=== PATIENT | male | born 1950 | race Caucasian/White ===

== ENCOUNTER 2016-12-28 09:43 | Emergency (ER) | payer OTHER ==
[2016-12-28 09:49] VITALS: BP 144/86; BMI 27.3
--- NOTE | 2016-12-28 10:05 | DR.GENAD ---
HPI - PCP Primary Care Physician: ANGELA - Complaint/Symptoms Chief Complaint Doctors Comments: Agree with statement. Symptoms of two days duration. Chief Complaint:: PT. C/O BODY ACHES, FEVER, STOMACH PAIN, CHILLS, NAUSEA. - Source History Provided: Patient - Mode of Arrival Mode of Arrival: Ambulatory - Timing Onset of Chief Complaint: 12/26/16 PMH - PMH Past Medical History: Yes Past Medical History: Hypertension Past Surgical History: Yes Surgical History: Cholecystectomy - Family History History of Family Medical Conditions: Yes Family Medical History: Cancer, Coronary Artery Disease - Social History Does patient currently use any type of tobacco product: No Have you used tobacco products in the last 12 months: No Type of Tobacco Use: None Does any household member use tobacco: No Alcohol Use: Occasionally Do you use any recreational Drugs:: No Lives With: Spouse Lives Where: Home - infectious screening In the last 2 months have you had wt loss of >10#?: NO Have you had fever, night sweats or hemotysis?: No Have you traveled outside the country in the last 6 months?: No Isolation: Standard ROS - Review of Systems Eyes: No Symptoms Reported ENTM: No Symptoms Reported Respiratoy: No Symptoms Reported Cardiovascular: No Symptoms Reported Gastrointestinal/Abdominal: Nausea Genitourinary: No Symptoms Reported Neurological: Weakness Musculoskeletal: No Symptoms Reported Integumentary: No Symptoms Reported Hematologic/Lymphatic: No Symptoms Reported Endocrine: No Symptoms Reported Psychiatric: No Symptoms Reported All Other Systems: Reviewed and Negative PE - Vital Signs Vitals: Temperature 98.7 F Pulse Rate 97 Respiratory Rate 17 Blood Pressure 144/86 O2 Sat by Pulse Oximetry 96 - General Limitations: No Limitations General Appearance: Alert, In No Apparent Distress - Head Head Exam: Normal Inspection, Atraumatic - Eyes Eye exam: Normal Appearance, PERRL, EOMI - ENT ENT Exam: Normal Exam External Ear Exam: Normal External Inspection TM/Canal Exam: Bilateral Normal Nose Exam: Normal Nose Exam Mouth Exam: Normal Inspection Throat Exam: Normal Inspection - Neck Neck Exam: Normal Inspection, Full ROM - Chest Chest Inspection: Normal Inspection - Respiratory Respiratory Exam: Normal Lung Sounds Bilat Respiratory Exam: Bilateral Clear to Auscultation - Cardiovascular Cardiovascular Exam: Regular Rate, Normal Rhythm - Abdominal Exam Abdominal Exam: Normal Inspection, Normal Bowel Sounds Abdominal Tenderness: negative: RUQ, RLQ, LUQ, LLQ, Epigastrium, Suprapubic, Diffuse, Mild, Moderate, Severe, Other - Extremities Extremities Exam: Normal Inspection - Back Back Exam: Normal Inspection, Full ROM - Psychiatric Psychiatric Exam: Normal Affect - Skin Skin Exam: Warm, Dry, Intact Course - Reevaluation 1st: Improved ROR - Labs Reviewed Laboratory Results Reviewed?: Yes (strep positive/ influenza pending) Result Diagrams: 12/28/16 10:15 12/28/16 10:15 Laboratory: WBC 10.0 X10^3/uL (3.6-10.0) 12/28/16 10:15 RBC 5.25 X10^6/uL (4.7-6.0) 12/28/16 10:15 Hgb 16.4 g/dL (13.5-18.0) 12/28/16 10:15 Hct 46.1 % (42.0-54.0) 12/28/16 10:15 MCV 87.9 fL (80.0-100.0) 12/28/16 10:15 MCH 31.3 pg (27.0-34.0) 12/28/16 10:15 MCHC 35.6 g/dL (33.0-35.0) H 12/28/16 10:15 RDW 12.8 % (11.6-16.5) 12/28/16 10:15 Plt Count 179 X10^3/uL (150.0-450.0) 12/28/16 10:15 MPV 6.9 fL (7.4-11.0) L 12/28/16 10:15 Neut % 83.5 % (42.0-75.0) H 12/28/16 10:15 Lymph % 7.9 % (21.0-51.0) L 12/28/16 10:15 [place] % 8.0 % (0.0-13.0) 12/28/16 10:15 Eos % 0.0 % (0.9-2.9) L 12/28/16 10:15 Baso % 0.6 % (0.2-1.0) 12/28/16 10:15 Neut # 8.3 x10^3/uL (2.2-4.8) H 12/28/16 10:15 Lymph # 0.8 X10^3/uL (1.3-2.9) L 12/28/16 10:15 [place] # 0.8 x10^3/uL (0.3-0.8) 12/28/16 10:15 Eos # 0.0 x10^3/uL (0.0-0.2) 12/28/16 10:15 Baso # 0.1 X10^3/uL (0.0-0.1) 12/28/16 10:15 Absolute Nucleated RBC 0.0 /100WBC 12/28/16 10:15 Sodium 138 mmol/L (136-145) 12/28/16 10:15 Corrected Sodium 138 mmol/L (136-145) 12/28/16 10:15 Potassium 3.6 mmol/L (3.5-5.1) 12/28/16 10:15 Chloride 102 mmol/L (98-107) 12/28/16 10:15 Carbon Dioxide 28.0 mmol/L (21-32) 12/28/16 10:15 BUN 8 mg/dL (7-18) 12/28/16 10:15 Creatinine 0.78 mg/dL (0.70-1.30) 12/28/16 10:15 Est GFR (MDRD) Af Amer > 60 (>60) 12/28/16 10:15 Est GFR (MDRD) Non-Af > 60 (>60) 12/28/16 10:15 Glucose 120 mg/dL (65-99) H 12/28/16 10:15 Calcium 8.6 mg/dL (8.5-10.1) 12/28/16 10:15 Corrected Calcium TNP 12/28/16 10:15 Total Bilirubin 0.80 mg/dL (0.2-1.0) 12/28/16 10:15 AST 16 Units/L (15-37) 12/28/16 10:15 ALT 14 Units/L (12-78) 12/28/16 10:15 Alkaline Phosphatase 81 Units/L (46-116) 12/28/16 10:15 C-Reactive Protein 54.90 mg/L (0-3.0) H 12/28/16 10:15 Total Protein 7.2 g/dL (6.4-8.2) 12/28/16 10:15 Albumin 3.5 g/dL (3.4-5.0) 12/28/16 10:15 Globulin 3.7 g/dL (2.5-4.5) 12/28/16 10:15 Albumin/Globulin Ratio 0.9 Ratio (1.1-2.1) L 12/28/16 10:15 Streptococcus Screen Positive (NEGATIVE) A 12/28/16 10:19 - Diagnosis Discharge Problem: Influenza-like illness - Discharge Plan Condition: Stable - Follow ups/Referrals Follow ups/Referrals: [facility],None [Primary Care Provider] - 3 days - Instructions
[2016-12-28] MEDS ORDERED: NS 1000 ML 1,000 ML ONE (10:09)
[2016-12-28 10:28] LABS: BASOPHILS # (AUTO) 0.1 X10^3/uL (0.0-0.1); BASOPHILS % (AUTO) 0.6 % (0.2-1.0); HEMATOCRIT 46.1 % (42.0-54.0); HEMOGLOBIN 16.4 g/dL (13.5-18.0); LYMPHOCYTES # (AUTO) 0.8 X10^3/uL (1.3-2.9); LYMPHOCYTES % (AUTO) 7.9 % (21.0-51.0); MEAN CORPUSCULAR HEMOGLOBIN 31.3 pg (27.0-34.0); MEAN CORPUSCULAR HGB CONC 35.6 g/dL (33.0-35.0); MEAN CORPUSCULAR VOLUME 87.9 fL (80.0-100.0); MEAN PLATELET VOLUME 6.9 fL (7.4-11.0); MONOCYTES # (AUTO) 0.8 x10^3/uL (0.3-0.8); NEUTROPHILS # (AUTO) 8.3 x10^3/uL (2.2-4.8); NEUTROPHILS % (AUTO) 83.5 % (42.0-75.0); PLATELET COUNT 179 X10^3/uL (150.0-450.0); RED BLOOD COUNT 5.25 X10^6/uL (4.7-6.0); RED CELL DISTRIBUTION WIDTH 12.8 % (11.6-16.5)
[2016-12-28 10:39] LABS: ALANINE AMINOTRANSFERASE 14 Units/L (12-78); ALBUMIN 3.5 g/dL (3.4-5.0); ALKALINE PHOSPHATASE 81 Units/L (46-116); ASPARTATE AMINO TRANSFERASE 16 Units/L (15-37); BLOOD UREA NITROGEN 8 mg/dL (7-18); CALCIUM 8.6 mg/dL (8.5-10.1); CHLORIDE 102 mmol/L (98-107); COR NA(FOR HYPERGLY) 138 mmol/L (136-145); CREATININE 0.78 mg/dL (0.70-1.30); GLUCOSE 120 mg/dL (65-99); SODIUM 138 mmol/L (136-145); TOTAL PROTEIN 7.2 g/dL (6.4-8.2); eGFR BLACK RACES > 60 (>60); eGFR NON BLACK RACES > 60 (>60)
[2016-12-28] MEDS ORDERED: BICILLIN L-A IM ONE ×2 (10:51→10:59)
[2016-12-28] MEDS ORDERED: NS 1000 ML 1,000 ML IV SCH (11:00)
--- NOTE | 2016-12-28 11:50 | RAD ---
HISTORY: 66-year-old male with fever, body aches and stomach pain with nausea. Study: Single frontal view of the chest. Comparison: None. Findings: The trachea is midline. The cardiac silhouette is unremarkable. Low lung volumes with bibasilar at electasis. No focal consolidation, effusion or pneumothorax. Soft tissues and osseous structures ar e unremarkable IMPRESSION: 1. No acute cardiopulmonary disease. Reported By:
== END 2016-12-28 12:08 | disposition home or self-care (01) ==
LOC: ER 09:53
DX: J11.1 Influenza due to unidentified influenza virus with other respiratory manifestations (principal)
CPT/HCPCS: 36415; 71010; 80053; 85025; 86140; 87502; 87503; 87880; 96365; 96372; 99283; A4222; J0570